=== PATIENT | male | born 1995 | race Caucasian/White ===

== ENCOUNTER 2016-10-06 11:05 | Emergency (ER) | payer OTHER ==
[~2016-10-06] VITALS: Ht 177.8 cm; Wt 95.5 kg
[2016-10-06 11:10] VITALS: BP 130/93; PULSE 99; TEMP 98.3
[2016-10-06] MEDS ORDERED: BACTRIM DS 8001 TAB PO (11:40)
[2016-10-06] MEDS ORDERED: NORCO 325 MG-51 TAB PO (12:32)
== END 2016-10-06 12:41 | disposition home or self-care (01) ==
LOC: COL.ER 11:05
DX: L02.211 Cutaneous abscess of abdominal wall (principal)

== ENCOUNTER 2016-11-06 15:19 | Emergency (ER) | payer OTHER ==
[~2016-11-06] VITALS: Ht 177.8 cm; Wt 95.3 kg
[~2016-11-06 15:19] MED LIST: BACTRIM DS 8001 TAB PO; NORCO 325 MG-51 TAB PO
[2016-11-06 15:31] VITALS: BP 149/94; PULSE 105; TEMP 97.9
[2016-11-06] MEDS ORDERED: BACTRIM DS 8001 TAB PO (16:21)
[2016-11-06] MEDS ORDERED: NORCO 325 MG-51 TAB PO (16:43)
== END 2016-11-06 17:00 | disposition home or self-care (01) ==
LOC: COL.ER 15:19
DX: L02.31 Cutaneous abscess of buttock (principal); Z86.14 Personal history of Methicillin resistant Staphylococcus aureus infection; F17.210 Nicotine dependence, cigarettes, uncomplicated; Z23 Encounter for immunization

== ENCOUNTER 2017-01-02 04:35 | Emergency (ER) | payer OTHER ==
[~2017-01-02] VITALS: Ht 177.8 cm; Wt 95.5 kg
[2017-01-02 04:42] VITALS: TEMP 100.3
[2017-01-02] MEDS ORDERED: NATURAL ODORLE400 MG PO (04:46)
[2017-01-02] MEDS ORDERED: ECHINACEA400 MG (04:46)
[2017-01-02] MEDS ORDERED: BACTRIM DS 8001 TAB PO (05:25)
[2017-01-02] MEDS ORDERED: ULTRAM 50MG TAB50 MG PO (05:25)
[2017-01-02] MEDS ORDERED: PERCOCET 325 MG1 TA2 PO (05:25)
[2017-01-02 05:45] VITALS: BP 127/62; PULSE 94
== END 2017-01-02 05:45 | disposition home or self-care (01) ==
LOC: COL.ER 04:35
DX: L03.115 Cellulitis of right lower limb (principal); L03.317 Cellulitis of buttock; Z86.14 Personal history of Methicillin resistant Staphylococcus aureus infection
CPT/HCPCS: J1885